=== PATIENT | female | born 1980 | race Caucasian/White ===

== ENCOUNTER 2016-12-26 20:58 | Emergency (ER) | payer BC ==
[~2016-12-26] VITALS: Ht 157.5 cm; Wt 107.3 kg
[2016-12-26 21:32] LABS: EOSINOPHIL (%) 0.3 % (0-5); HEMATOCRIT 37.3 % (36.0-46.0); IMMATURE GRANULOCYTE (%) 0.4 % (0.0-0.7); IMMATURE GRANULOCYTE COUNT 0.1 K/uL; INSTRUMENT ABS NEUTROPHIL CT 10.3 K/uL; LYMPHOCYTE COUNT 1.8 K/uL (1.0-2.8); MCH 27.9 PG (29.0-34.0); MCV 84.6 FL (83-99); MEAN PLAT.VOLUME 8.8 uM^3 (9.5-12.4); MONOCYTE (%) 6.3 % (3-12); MONOCYTE COUNT 0.8 K/uL (0-0.8); NEUTROPHIL (%) 78.6 % (45-76); NEUTROPHIL COUNT 10.3 K/uL (1.8-6.4); PLATELET COUNT 265 K/uL (156-360); RBC DIS.WIDTH-CV 12.6 % (11.8-14.6); RBC DIS.WIDTH-SD 38.1 % (39-53); RED BLOOD COUNT 4.41 M/uL (3.80-5.20); WHITE BLOOD COUNT 13.1 K/uL (4.1-10.2)
[2016-12-26 21:40] LABS: CHLORIDE 107 mEq/L (99-109); POTASSIUM 3.6 mEq/L (3.7-5.4); SODIUM 140 mEq/L (136-147)
[2016-12-26 21:41] LABS: MAGNESIUM 1.9 mg/dL (1.3-2.7)
[2016-12-26 21:43] LABS: GLUCOSE 149 mg/dL (70-99)
[2016-12-26 21:44] LABS: ANION GAP 12 MEQ/L (2-14); TOTAL BILIRUBIN 0.3 mg/dL (0.0-1.0)
[2016-12-26 21:46] LABS: ALKALINE PHOSPHATASE 60 IU/L (3-129); GFR ESTIMATE (CALCULATED) > 59 mL/min/
[2016-12-26 21:47] LABS: UREA NITROGEN (BUN) 20 mg/dL (9-23)
[2016-12-26 21:49] LABS: CREATINE KINASE 153 IU/L (1-294)
[2016-12-26 21:55] LABS: QUANTITATIVE HCG < 4.0 MIU/ML
[2016-12-26 21:56] LABS: ADD MIUA? YES; BILIRUBIN NEGATIVE; BLOOD SMALL; COLOR YELLOW ((YELLOW)); GLUCOSE (STRIP) NEGATIVE; KETONES 20; LEUKOCYTES NEGATIVE; NITRITE NEGATIVE; PROTEIN (STRIP) 30; SPECIFIC GRAVITY 1.025 (1.000-1.030); UROBILINOGEN 0.2 MG/DL (0.2-1.0)
[2016-12-26 22:02] LABS: BACTERIA RARE /HPF; CALCIUM OXALATE CRYSTALS 2+ /HPF; EPITHELIAL CELLS RARE /HPF; HYALINE CASTS 20-30 /LPF; MUCUS 2+ /LPF; UCUL ADDED? NO; WHITE BLOOD CELLS 0-5 /HPF (0-5)
[2016-12-26 22:44] VITALS: BP 115/85
== END 2016-12-26 22:45 | disposition home or self-care (01) ==
LOC: EME 20:58
PROVIDERS: Emergency Medicine
DX: R55 Syncope and collapse (principal); E86.0 Dehydration; E87.6 Hypokalemia
CPT/HCPCS: 80053; 81003; 82550; 83735; 84702; 85025; 99281; 99285; J7030